=== PATIENT | male | born 1955 | race African-American/Black ===

== ENCOUNTER → 2021-03-17 | Outpatient (CLI) | payer OTHER ==
--- NOTE | 2021-03-17 10:25 | KCIC ---
EXAM: Lumbar spine, 3 views. HISTORY: Sciatica. Pain. COMPARISON: None. FINDINGS: 3 views of the lumbar spine are obtained. There is no listhesis. The vertebral bodies are n ormal in height. There is multilevel endplate remodeling. There are bulky bridging anterior osteophyt es at the lower lumbar levels. There is facet arthropathy predominantly the lumbosacral junction. The re are findings with right inguinal hernia repair. IMPRESSION: 1. Multilevel degenerative change involving the lumbar spine, primarily at the lumbosacral junction. 2. No acute osseous finding. Electronically signed by: Gina Bravo MD (03/17/2021 10:23 AM) [id number]
== END ==
LOC: KCIC 10:04
PROVIDERS: ATTEND Nurse Practitioner Gerontology
DX: M47.817 Spondylosis without myelopathy or radiculopathy, lumbosacral region (principal)
CPT/HCPCS: 72100

== ENCOUNTER 2021-03-28 08:26 | Emergency (ER) | payer OTHER ==
[~2021-03-28] VITALS: Ht 154.9 cm; Wt 75.0 kg
--- NOTE | 2021-03-28 09:29 | PHYS DOC ---
General Adult EDM: Chief Complaint: HYPERGLYCEMIA HPI: HPI: 65-year-old male past medical history significant for hypertension, diabetes (metformin and 1 injection daily) and renal transplant @[facility] 11/2015, recently started on Medrol Dosepak (last dose today) for right sided lumbar pain back, presents to the ED with complaints of elevated glucose and blood pressure. Patient reports his glucose is usually in the 80s but this morning was 138 and 150. Patient takes Metformin and 7 units of Tresiba daily. States his last creatinine was 1.7 in January 2021 and this is the best his Cr has been since he had a right anterior kidney transplant. Follows with Dr. Piper who advised him to take half a tablet of his valsartan twice daily for elevated blood pressure, normally takes valsartan 40 mg twice daily. Reports his systolic blood pressure is normally 140 or 150, this morning it was " too high." Review of Systems: Review of Systems: Constitutional: Denies fever or chills. [] Eyes: Denies change in visual acuity. [] HENT: Denies nasal congestion or sore throat. [] Respiratory: Denies cough or shortness of breath. [] Cardiovascular: Denies chest pain or edema. [] GI: Denies abdominal pain, nausea, vomiting, bloody stools or diarrhea. [] : Denies dysuria or hematuria or saddle esthesia Musculoskeletal: Denies midline back pain or joint pain. [] Integument: Denies rash or diaphoresis Neurologic: Denies headache, focal weakness or sensory changes. [] Endocrine: Denies polyuria or polydipsia. [] Lymphatic: Denies swollen glands. [] Psychiatric: Denies depression or anxiety. [] Heart Score: C/O Chest Pain: No Risk Factors: Risk Factors: DM, Current or recent (<one month) smoker, HTN, HLP, family history of CAD, obesity. Risk Scores: Score 0 - 3: 2.5% MACE over next 6 weeks - Discharge Home Score 4 - 6: 20.3% MACE over next 6 weeks - Admit for Clinical Observation Score 7 - 10: 72.7% MACE over next 6 weeks - Early Invasive Strategies Allergies: Allergies: Allergies Coded Allergies Type Severity Reaction Last Updated Verified No Known Drug Allergies 03/28/21 No Physical Exam: PE: Constitutional: Well developed, well nourished, no acute distress, non-toxic appearance. HENT: Normocephalic, atraumatic, Eyes: EOMI, conjunctiva normal, no discharge. Neck: Normal range of motion, supple, Cardiovascular: S1/2 present, regular rhythm Lungs & Thorax: Speaking in full sentences, bilateral equal chest rise, no tachypnea or increased work of breathing Abdomen: soft, no tenderness, Skin: Warm, dry, no erythema, no rash. [] Extremities: No tenderness, no cyanosis, Neurologic: Alert and oriented X 3, normal motor function, normal sensory function, no focal deficits noted. [] Psychologic: Affect normal, judgement normal, mood normal. [] EKG: EKG: [] Radiology/Procedures: Radiology/Procedures: [] Course & Med Decision Making: Course & Med Decision Making Pertinent Labs and Imaging studies reviewed. (See chart for details) Concern for medication adverse effect of medroxyprogesterone with slightly elevated glucose, no anion gap. Creatinine is 1.8 and patient understands to follow-up with his renal transplant physician in the next 24 to 48 hours regarding these results. I encourage patient to take valsartan 20 mg twice a day for 1 day if his systolic blood pressure should remain above 160. Will discharge home with strict ED return precautions were given for chest pain, dyspnea, neurologic deficits, syncope or fever. 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 Life-threatening processes were considered but are low suspicion at this time, given history, physical exam and ED workup. Pt was educated on all prescription medications and adverse effects. All patient's questions were answered and pt was stable at time of discharge. Life/limb-threatening differential includes but is not limited to, end organ damage/sepsis, trauma/abuse/neglect, neurologic deficit, alcohol/drug ingestion, toxidrome, suicidal/homicidal ideations plans or attempts, psychosis or mental illness resulting in self neglect and inability to care for self. I spoken with the patient and her caregivers. I explained the patient's condition, diagnoses and treatment plan based on the information available to me at this time. I have answered the patient and her caregiver's questions and addressed any concerns. The patient and her caregivers have a good understanding of patient's diagnosis, condition and treatment plan as can be expected at this point. Vital signs have been stable. Patient's condition is stable and appropriate for discharge from the emergency department. Patient will pursue further outpatient evaluation with primary care physician or other designated or consulting physician as outlined in the discharge instructions. The patient and/or caregivers are agreeable to this plan of care and follow-up instructions have been explained in detail. The patient and/or caregivers have received these instructions in written form and have expressed an understanding of the discharge instructions. The patient and/or caregivers are aware that any significant change of condition or worsening of symptoms should prompt immediate return to this or the closest emergency department or call to 911. Claudia Disclaimer: AIRTAME Disclaimer: This electronic medical record was generated, in whole or in part, using a voice recognition dictation system. Departure Departure Impression: Primary Impression: Medroxyprogesterone adverse reaction Additional Impression: Uncontrolled hypertension Disposition: HOME / SELF CARE / HOMELESS Condition: STABLE Referrals: CECI PIPER MD (PCP) Increase your valsartan x 1 day and follow up with pcp in 24-48 hours. Also contact your transplant chandelier maker to inform them creatinine was 1.8, BUN 46. Glucose on CMP labs is 161. Patient Instructions: Hyperglycemia, Hypertension Additional Instructions: EMERGENCY DEPARTMENT GENERAL DISCHARGE INSTRUCTIONS Thank you for coming to [facility] Emergency Department (ED) today and trusting us with you care. We trust that you had a positive experience in our Emergency Department. If you wish to speak to the department management, you may call the Director at [phone]. YOUR FOLLOW UP INSTRUCTIONS ARE FOLLOWS: 1. Do you have a private Doctor? If you do not have a private doctor, please ask for a resource list of physicians or clinics that may be able to assist you with follow up care. 2. The Emergency Physicain has interpreted your x-rays. The X-Ray specialist will also review them. If there is a change in the findings, you will be notified in 48 hours when at all possible. 3. A lab test or culture has been done, your results will be reviewed and you will be notified if you need a change in treatment. ADDITIONAL INSTRUCTIONS AND INFORMATION: 1. Your care today has been supervised by a physician who is specially trained in emergency care. Many problems require more than one evaluation for a complete diagnosis and treatment. We recommend that you schedule your follow up appointment as recommended to ensure complete treatment of you illness or injury. If you are unable to obtain follow up care and continue to have a problem, or if your condition worsens, we recommend that you return to the ED. 2. We are not able to safely determine your condition over the phone nor are we able to give sound medical advice over the phone. For these safety reasons, if you call for medical advice we will ask you to come to the ED for further evaluation. 3. If you have any questions regarding these discharge instructions please call the ED at [phone]. SAFETY INFORMATION: In the interest of safety, wellness, and injury prevention; we encourage you to wear your sealbelt, if you smoke; quite smoking, and we encourage family to use a protective helmet for bicycling and other sporting events that present an increased risk for head injury. IF YOUR SYMPTOMS WORSEN OR NEW SYMPTOMS DEVELOP, OR YOU HAVE CONCERNS ABOUT YOUR CONDITION; OR IF YOUR CONDITION WORSENS WHILE YOU ARE WAITING FOR YOUR FOLLOW UP APPOINTMENT; EITHER CONTACT YOUR PRIMARY CARE DOCTOR, THE PHYSICIAN WHOSE NAME AND NUMBER YOU WERE GIVEN, OR RETURN TO THE ED IMMEDIATELY. DARI BOOTHE DO March 28, 2021 09:29
[2021-03-28 09:59] LABS: BASO % 0 % (0-3); EOS % 0 % (0-3); HEMATOCRIT 35.9 % (39.0-53.0); HEMOGLOBIN 11.5 g/dL (13.0-17.5); LYMPH # 0.2 x10^3/uL (1.0-4.8); LYMPH % 4 % (24-48); MEAN CORPUSCULAR HEMOGLOBIN 27 pg (25-35); MEAN CORPUSCULAR HGB CONC 32 g/dL (31-37); MEAN CORPUSCULAR VOLUME 83 fL (79-100); MONO # 0.3 x10^3/uL (0.0-1.1); MONO % 5 % (0-9); NEUT # 4.9 x10^3/uL (1.8-7.7); NEUT % 91 % (31-73); PLATELET COUNT 144 x10^3/uL (140-400); RED BLOOD COUNT 4.34 x10^6/uL (4.30-5.70); RED CELL DISTRIBUTION WIDTH 17.3 % (11.5-14.5); WHITE BLOOD COUNT 5.4 x10^3/uL (4.0-11.0)
[2021-03-28 10:12] LABS: CALCIUM 9.6 mg/dL (8.5-10.1); CREATININE 1.8 mg/dL (0.7-1.3); GFR 45.9; POTASSIUM 4.5 mmol/L (3.5-5.1)
[2021-03-28 10:17] LABS: ALBUMIN 3.8 g/dL (3.4-5.0); ALBUMIN/GLOBULIN RATIO 1.2 (1.0-1.7); TOTAL BILIRUBIN 0.9 mg/dL (0.2-1.0); TOTAL PROTEIN 7.1 g/dL (6.4-8.2)
[2021-03-28 11:03] LABS: % BANDS 1 % (0-9); % LYMPHS 4 % (24-48); % MONOS 3 % (0-10); % SEGS 92 % (35-66); ANISOCYTOSIS SLIGHT; PLT ESTIMATE ADEQUATE (ADEQUATE)
[2021-03-28 11:20] VITALS: BP 171/77
== END 2021-03-28 11:26 | disposition home or self-care (01) ==
LOC: ER 08:26
DX: M54.5 Low back pain (principal); T38.5X5A Adverse effect of other estrogens and progestogens, initial encounter; I10 Essential (primary) hypertension; E11.65 Type 2 diabetes mellitus with hyperglycemia; Z94.0 Kidney transplant status; Y92.89 Other specified places as the place of occurrence of the external cause
CPT/HCPCS: 36415; 80053; 82010; 85007; 85025; 99283